=== PATIENT | female | born 1955 | race Caucasian/White ===

== ENCOUNTER 2017-02-04 13:43 | Emergency (ER) | payer OTHER | END 2017-02-04 14:20 | disposition home or self-care (01) | LOC: NAV ERS 13:43 | DX: Z04.3 Encounter for examination and observation following other accident (principal); E78.5 Hyperlipidemia, unspecified; I10 Essential (primary) hypertension; Z79.899 Other long term (current) drug therapy; Z79.82 Long term (current) use of aspirin | CPT/HCPCS: 99283 ==